=== PATIENT | female | born 1955 | race Caucasian/White ===

== ENCOUNTER 2016-09-12 07:53 | Emergency (ER) | payer OTHER ==
[~2016-09-12] VITALS: Ht 160 cm; Wt 106.6 kg
[~2016-09-12 07:53] MED LIST: LORA2TAB10 PO; MET50T PO; PANT1INJ3 PO
[2016-09-12 08:44] VITALS: BP 142/65
== END 2016-09-12 09:19 | disposition home or self-care (01) ==
LOC: ER 08:04
DX: N64.4 Mastodynia (principal); K21.9 Gastro-esophageal reflux disease without esophagitis; I10 Essential (primary) hypertension; Z98.51 Tubal ligation status; Z90.89 Acquired absence of other organs; Z88.1 Allergy status to other antibiotic agents
CPT/HCPCS: 93005